=== PATIENT | female | born 1930 | race Asian ===

== ENCOUNTER → 2017-03-22 | Outpatient (CLI) | payer MEDICARE ==
[~2017-03-22] MED LIST: DIATRIZOATE MEGLU/SOD 660/100 MG/ML 120 ML BOTTLE ONE; LIDOCAINE HCL/PF 1% 5 ML VIAL ONE
== END | disposition home or self-care (01) ==
LOC: RADMN 09:17
PROVIDERS: ATTEND Internal Medicine
DX: K94.23 Gastrostomy malfunction (principal)
CPT/HCPCS: 49450; C1769; J3490; Q9963; 36245